=== PATIENT | male | born 1970 | race Caucasian/White ===

== ENCOUNTER 2019-03-01 19:51 | Emergency (ER) | payer MEDICAID, OTHER ==
[~2019-03-01] VITALS: Ht 175.3 cm; Wt 88.5 kg
[2019-03-01 21:00] VITALS: BP 143/74
[2019-03-01] MEDS ORDERED: cefTRIAXone SOD 1,000 MG VL IM ONE (21:00)
== END 2019-03-01 22:02 | disposition home or self-care (01) ==
LOC: ER 19:54
DX: L02.31 Cutaneous abscess of buttock (principal)
CPT/HCPCS: 10060; 74018; 96372; 99283; J0696

== ENCOUNTER 2020-08-31 10:00 | Emergency (ER) | payer MEDICAID ==
[~2020-08-31] VITALS: Ht 175.3 cm; Wt 88.5 kg
[2020-08-31 10:01] VITALS: BP 148/94
[2020-08-31] MEDS ORDERED: TETRACAINE HCL 0.5% OPTH(EYE) SOLN 4ML RIGHTEYE ONE (10:45)
[2020-08-31] MEDS ORDERED: FLUORESCEIN SOD 1 MG TEST STRIP RIGHTEYE ONE (10:45)
== END 2020-08-31 11:28 | disposition home or self-care (01) ==
LOC: ER 10:00
DX: T15.01XA Foreign body in cornea, right eye, initial encounter (principal); W22.8XXA Striking against or struck by other objects, initial encounter; Y93.89 Activity, other specified; Y92.89 Other specified places as the place of occurrence of the external cause; Y99.8 Other external cause status
CPT/HCPCS: 65220